=== PATIENT | male | born 1995 | race Caucasian/White ===

== ENCOUNTER 2017-01-30 17:45 | Emergency (ER) | payer OTHER ==
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
--- NOTE | 2017-01-30 17:59 | PDOC ---
Attending Attestation - Resident Resident Name: Young Montoya - ED Attending Attestation I have performed the following: I have examined & evaluated the patient, The case was reviewed & discussed with the resident, I agree w/resident's findings & plan, Exceptions are as noted - HPI HPI: 01/30/17 17:58 The patient is a 21-year-old male who presents to the emergency department after he sustained a laceration of the right ear. He denies head trauma. There is minimal pain. He denies any changes in his hearing. - Physicial Exam PE: 01/30/17 18:16 The patient is well-appearing and in no acute distress There is an area laceration at the apex of the right ear, it is approximately 1 cm in depth - Medical Decision Making 01/30/17 18:17 I discussed the advantages of repair by plastic surgery versus the advantages of repair in the emergency department, high lighting the advanced skilled level of the plastic surgeon versus the immediate availability of repair in the emergency department. I explained that I have the ability to repair this laceration, though the expertise of a plastic surgeon exceeds my own. Both the patient and the mother requests immediate repair by myself. The patient is quite anxious, and we will administer 5 mg of Valium. I have applied topical lidocaine to the laceration 01/30/17 18:32 The patient is refusing laceration repair After extensive discussion with both he and his mother, we have elected to provide intramuscular analgesia using morphine, as it will also provide some anxiolysis 01/30/17 18:39 Morphine given Will await analgesic effect 01/30/17 19:27 10 sutures placed after the wound was cleaned and prepped as well as irrigated and explored No foreign body was present The wound edges approximated extremely well The patient's mother was very pleased with the cosmesis I had her inspect all aspects of the wound very closely I counseled them regarding wound care and the need for close follow-up Clinical impression: Complicated right ear laceration I discussed the physical exam findings, ancillary test results and final diagnoses with the patient. I answered all of the patient's questions. The patient was satisfied with the care received and felt comfortable with the discharge plan and treatment plan. The patient will call their primary care physician within 24 hours to arrange follow-up and will return to the Emergency Department with any new, persistent or worsening symptoms. A portion of this note was documented by scribe services under my direction. I have reviewed the details of the note, within reason, and agree with the documentation with the following case summary and management plan written by me. Discharge Disposition - Diagnosis Ear lobe laceration - Discharge Dispostion Disposition: HOME Condition at time of disposition: Good - Prescriptions Prescriptions: Cephalexin Monohydrate [Keflex] 500 mg PO BID #10 capsule - Referrals Referrals: Alisa Wilder [Primary Care Provider] - - Patient Instructions Printed Discharge Instructions: DI for Laceration Repair Additional Instructions: Follow up with your primary care physician after this emergency room visit. Sutures should be removed in 5 days. Take the antibiotic that we prescribed twice daily to prevent infection. Return to the emergency department immediately with ANY new, persistent or worsening symptoms. Specifically, if your ear becomes red, hot, swollen or has discharge, it may be infected, and he must return to the emergency department immediately. You MUST call and follow up with your doctor tomorrow. Please make sure your doctor reviews the results of your emergency department evaluation. - Post Discharge Activity
[2017-01-30 18:08] VITALS: BP 154/95; PULSE 88; TEMP 97.8; BMI 22.4
[2017-01-30] MEDS ORDERED: diazePAM 5 MG TABLET ONE (18:16)
[2017-01-30] MEDS ORDERED: diazePAM 5 MG TABLET PO ONE (18:18)
[2017-01-30] MEDS ORDERED: morphine CARPU-JECT 4 MG/1 ML DISP.SYRIN IM ONE (18:32)
[2017-01-30] MEDS ORDERED: morphine CARPU-JECT 2 MG/1 ML DISP.SYRIN ONE (18:36)
== END 2017-01-30 19:52 | disposition home or self-care (01) ==
LOC: FER 17:45
PROC: 3E023NZ Introduction of Analgesics, Hypnotics, Sedatives into Muscle, Percutaneous Approach (ICD-10-PCS; principal; 2017-01-30)
DX: S01.311A Laceration without foreign body of right ear, initial encounter (principal); W22.8XXA Striking against or struck by other objects, initial encounter; Y93.89 Activity, other specified; Y92.9 Unspecified place or not applicable
CPT/HCPCS: 99282-25

== ENCOUNTER 2017-02-05 15:32 | Emergency (ER) | payer OTHER ==
[2017-02-05 15:40] VITALS: BMI 21.6
[2017-02-05 15:53] VITALS: BP 150/92; PULSE 73; TEMP 97.9
--- NOTE | 2017-02-05 16:03 | PDOC ---
History of Present Illness - General History Source: Patient Exam Limitations: No Limitations - History of Present Illness Initial Comments: 02/05/17 16:14 Patient is a 21 year old male with no significant past medical history who presents to the ED for suture removal from the top of the R ear placed on 01/30. Patient finished 5 days of abx. Patient states that he was instructed to apply Aquafor to the area everday, but he denies doing so. He reports tenderness to touch. He denies any recent head trauma or fall. <Sera Duncan - Last Filed: 02/05/17 16:59> <Marv Cheney - Last Filed: 02/05/17 17:05> - General Chief Complaint: Suture/Staple Removal(Here) Stated Complaint: suture removal Time Seen by Provider: 02/05/17 16:02 Past History <Sera Duncan - Last Filed: 02/05/17 16:59> - Past Medical History Psychiatric Problems: No (NEEDLE PHOBIA) - Immunization History Immunization Up to Date: Yes - Psycho/Social/Smoking Cessation Hx Anxiety: No Suicidal Ideation: No Smoking History: Never smoked Hx Alcohol Use: No Drug/Substance Use Hx: No Substance Use Type: None <Marv Cheney - Last Filed: 02/05/17 17:05> - Past Medical History Allergies/Adverse Reactions: Allergies Allergy/AdvReac Type Severity Reaction Status Date / Time Neuromuscular Blockers, AdvReac Unknown Verified 02/05/17 15:33 Benzylisoqu Neuromuscular Blockers, AdvReac Verified 02/05/17 15:33 Steroidal Home Medications: Ambulatory Orders NK [No Known Home Medication] 02/05/17 Review of Systems - Review of Systems Able to Perform ROS?: Yes Comments:: 02/05/17 16:15 GENERAL/CONSTITUTIONAL: No fever or chills. No weakness. HEAD, EYES, EARS, NOSE AND THROAT: No change in vision. No ear pain or discharge. No sore throat. CARDIOVASCULAR: No chest pain or shortness of breath. RESPIRATORY: No cough, wheezing, or hemoptysis. GASTROINTESTINAL: No nausea, vomiting, diarrhea or constipation. GENITOURINARY: No dysuria, frequency, or change in urination. MUSCULOSKELETAL: No joint or muscle swelling or pain. No neck or back pain. SKIN: (+)suture removal from the apex of the right ear. No rash NEUROLOGIC: No headache, vertigo, loss of consciousness, or change in strength/ sensation. ENDOCRINE: No increased thirst. No abnormal weight change. HEMATOLOGIC/LYMPHATIC: No anemia, easy bleeding, or history of blood clots. ALLERGIC/IMMUNOLOGIC: No hives or skin allergy. <Sera Duncan - Last Filed: 02/05/17 16:59> *Physical Exam - Vital Signs Last Vital Signs Temp Pulse Resp BP Pulse Ox 97.9 F 73 18 150/92 100 02/05/17 15:32 02/05/17 15:32 02/05/17 15:32 02/05/17 15:32 02/05/17 15:32 - Physical Exam Comments: 02/05/17 16:16 GENERAL: Awake, alert, and fully oriented, in no acute distress HEAD: No signs of trauma EYES: PERRLA, EOMI, sclera anicteric, conjunctiva clear ENT: Auricles normal inspection, hearing grossly normal, nares patent, oropharynx clear without exudates. Moist mucosa NECK: Normal ROM, supple, no lymphadenopathy, JVD, or masses LUNGS: Breath sounds equal, clear to auscultation bilaterally. No wheezes, and no crackles HEART: Regular rate and rhythm, normal S1 and S2, no murmurs, rubs or gallops ABDOMEN: Soft, nontender, normoactive bowel sounds. No guarding, no rebound. No masses EXTREMITIES: Normal range of motion, no edema. No clubbing or cyanosis. No cords, erythema, or tenderness NEUROLOGICAL: Cranial nerves II through XII grossly intact. Normal speech, normal gait SKIN:(+)7 sutures removed from apex anterior right ear. 3 sutures remaining at the back of the right top ear. Warm, Dry, normal turgor, no rashes or lesions noted. <Sera Duncan - Last Filed: 02/05/17 16:59> - Vital Signs Last Vital Signs Temp Pulse Resp BP Pulse Ox 97.9 F 73 18 150/92 100 02/05/17 15:32 02/05/17 15:32 02/05/17 15:32 02/05/17 15:32 02/05/17 15:32 <Marv Cheney - Last Filed: 02/05/17 17:05> Medical Decision Making - Medical Decision Making 05/26/17 16:17 21 yo M with no pmhx who presents to the ED suture removal placed here on 01/30. Patient seen and examined. Bacitracin was applied for approx. 20 mins to loosen up the sutures before the removal. 02/05/17 16:59 Sutures were removed only from the front top of the ear the top back were left until Wednesday. <Sera Duncan - Last Filed: 02/05/17 16:59> *DC/Admit/Observation/Transfer - Attestations Scribe Attestion: 02/05/17 16:16 Documentation prepared by VALENTE Shields, acting as medical records specialist for Marv Cheney DO. <Sera Duncan - Last Filed: 02/05/17 16:59> - Discharge Dispostion Admit: No - Attestations Physician Attestion: 02/05/17 16:03 I, Dr. Marv Cheney, attest that this document has been prepared under my direction and personally reviewed by me in its entirety. I further attest, that it accurately reflects all work, treatment, procedures and medical decision -making performed by me. <Marv Cheney - Last Filed: 02/05/17 17:05> Diagnosis at time of Disposition: Encounter for removal of sutures - Discharge Dispostion Disposition: HOME Condition at time of disposition: Good - Patient Instructions Printed Discharge Instructions: DI for Suture Removal Additional Instructions: Keep it covered with neosporin and come back wednesday to have the last three removed. Best- Dr. Marv Cheney
== END 2017-02-05 17:17 | disposition home or self-care (01) ==
LOC: FER 15:32
DX: Z48.02 Encounter for removal of sutures (principal)
CPT/HCPCS: 99281-25

== ENCOUNTER 2017-02-09 19:40 | Emergency (ER) | payer OTHER ==
[2017-02-09 19:48] VITALS: BP 147/100; PULSE 65; TEMP 97.7; BMI 22.4
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
== END 2017-02-09 20:07 | disposition home or self-care (01) ==
LOC: FER 19:40
DX: Z48.02 Encounter for removal of sutures (principal)
CPT/HCPCS: 99281-25

== ENCOUNTER 2017-09-09 23:34 | Emergency (ER) | payer OTHER ==
[2017-09-09 23:39] VITALS: BP 161/103; PULSE 72; TEMP 98.9; BMI 22.1
--- NOTE | 2017-09-09 23:39 | PDOC ---
History of Present Illness - General Chief Complaint: Injury Stated Complaint: FALL Time Seen by Provider: 09/09/17 23:39 History Source: Patient Exam Limitations: No Limitations - History of Present Illness Initial Comments: 09/09/17 23:54 This is a 22-year-old male who comes in with his father for evaluation status post a fall. Patient was going down a flight of stairs when he got to the landing longterm down he tripped losing his balance and fell off the landing landing on the floor about 5 feet below. Patient landed on the right side of his body. Patient said he did hit his head but did not pass out. Patient denies a headache, nausea, vertigo, dizziness or any neurological complaints. Patient denies any neck pain. Patient is complaining of some pain on the side of his head and upper posterior right ribs, and right thigh. Patient did not take anything for the pain. PAST MEDICAL HISTORY: no significant history PAST SURGICAL HISTORY: no significant history FAMILY HISTORY: no pertinant history SOCIAL HISTORY: Pt lives with family and is employed. MEDICATIONS: reviewed ALLERGIES: As per nursing notes Review of Systems General: No fevers or chills, no weakness, no weight loss HEENT: No change in vision. No sore throat,. No ear pain, pain right side of head CardioVascular: No chest pain or shortness of breath, right posterior rib pain Respiratory:No cough, or wheezing. Gastrointestinal: no nausea, vomitting, diarrhea or constipation, No rectal bleeding Genitourinary: No dysuria, hematuria, or frequency Musculoskeletal: No joint +, right thigh pain Neurologic: No headache, vertigo, dizziness or loss of consciousness Psychiatric: nor depression Skin: No rashes or easy bruising Endocrine: no increased thirst or abnormal weight change Allergic: no skin or latex allergy All other systems reviewed and normal Exam: General: Well-nourished well-developed individual, no acute distress HEENT: Throat: Normal, tonsils normal, no erythema or exudate, head there is a contusion over the right jain area. Neck: Supple, no meningeal signs, no lymphadenopathy, cervical spine is nontender to palpation with full range of motion at the neck without discomfort Eyes::Pupils equal reactive and round, extraocular motion intact Chest: Nontender to palpation Cardiac: S1-S2 normal, regular rate and rhythm, no murmurs rubs or gallops Respiratory: Lungs clear to auscultation bilateral Back: The thoracic lumbar and sacral spine or nontender to palpation diffusely, there is a contusion over the right posterior upper ribs with some tenderness on palpation of the second rib Abdomen: Soft, nondistended, normal bowel sounds, nontender to palpation diffusely Extremities: Warm, dry, no cyanosis, clubbing, or edema Skin: No rashes Neuro: Alert and oriented x3, CN II - XII intact, nonfocal exam with normal strength, normal sensation, normal reflexes, normal gait, Psych: Normal mood and affect 09/10/17 00:12 X-ray chest no acute pathology X-ray ribs no cute fracture dislocation Assessment and plan: This is a 22-year-old male who fell off of a landing of a staircase. Patient came in for evaluation. Patient had x-rays that were negative for any acute pathology. Patient denied any concussion type symptoms and did have multiple contusions but otherwise no broken bones. Patient was given ibuprofen here in the emergency room and told to continue 3 tablets 3 times a day and follow-up with his primary care next week if not improved Past History - Past Medical History Allergies/Adverse Reactions: Allergies Allergy/AdvReac Type Severity Reaction Status Date / Time Neuromuscular Blockers, AdvReac Unknown Verified 02/09/17 19:41 Benzylisoqu Neuromuscular Blockers, AdvReac Verified 02/09/17 19:41 Steroidal Home Medications: Ambulatory Orders Doxycycline Monohydrate [Monodox] 100 mg PO Q12H 09/09/17 Psychiatric Problems: No (NEEDLE PHOBIA) - Immunization History Immunization Up to Date: Yes - Suicide/Smoking/Psychosocial Hx Smoking History: Current some day smoker Have you smoked in the past 12 months: No Information on smoking cessation initiated: Yes Hx Alcohol Use: No Drug/Substance Use Hx: No Substance Use Type: None *Physical Exam - Vital Signs Last Vital Signs Temp Pulse Resp BP Pulse Ox 98.9 F 72 16 161/103 100 09/09/17 23:36 09/09/17 23:36 09/09/17 23:36 09/09/17 23:36 09/09/17 23:36 *DC/Admit/Observation/Transfer Diagnosis at time of Disposition: Contusion of scalp Qualifiers: Encounter type: initial encounter Qualified Code(s): S00.03XA - Contusion of scalp, initial encounter Chest wall contusion Qualifiers: Encounter type: initial encounter Laterality: right Qualified Code(s): S20.211A - Contusion of right front wall of thorax, initial encounter - Discharge Dispostion Disposition: HOME Condition at time of disposition: Stable - Referrals Referrals: Alisa Wilder [Primary Care Provider] - - Patient Instructions Additional Instructions: Take ibuprofen 3 tablets 3 times a day for the next 3-4 days. Follow-up with your primary care DrHailey next week if you're still having significant pain or discomfort. Return to the emergency department immediately with ANY new, persistent or worsening symptoms. Continue any medications as previously prescribed by your physician. You should follow up with your primary doctor as soon as possible regarding today's emergency department visit. . Please make sure your doctor reviews the results of your emergency evaluation. Thank you for coming to the Emergency Department today for your care. It was a pleasure to see you today. Please note that your evaluation is INCOMPLETE until you follow-up with your doctor. - Post Discharge Activity
[2017-09-09] MEDS ORDERED: IBUPROFEN 600 MG TABLET (FP) PO ONE ×2 (23:53→23:55)
== END 2017-09-10 00:25 | disposition home or self-care (01) ==
LOC: FER 23:34
DX: S00.03XA Contusion of scalp, initial encounter (principal); S20.211A Contusion of right front wall of thorax, initial encounter; F99 Mental disorder, not otherwise specified; F17.210 Nicotine dependence, cigarettes, uncomplicated
CPT/HCPCS: 71020-TC; 71101-TC-RT; 99281-25

== ENCOUNTER 2018-01-27 17:46 | Emergency (ER) | payer OTHER ==
[2018-01-27 17:55] VITALS: BP 143/89; PULSE 64; TEMP 97.8; BMI 23.3
--- NOTE | 2018-01-27 18:11 | PDOC ---
History of Present Illness - General History Source: Patient, Parent(s) Exam Limitations: No Limitations - History of Present Illness Initial Comments: 01/27/18 18:21 The patient is a 22 year old male accompanied with his mother, with a significant past medical history of hyperekplexia, who presents to the emergency department complaining of left heel pain for 2 days. The patient reports landing on his heel after jumping a height of 4 feet from a rock into a pool that was much more shallow than expected, 2 days ago. He reports moderate left heel pain which is exacerbated with walking. He reports difficulty ambulating. Denies loss of consciousness. Allergies: Benzylisoqu, Neuromuscular blockers. Past surgical history: Bilateral heel cord release. Umbilical hernia, myringotomies, T&A. Social history: Alcohol consumption reported. No reported cigarette or drug use. Occurred: reports: other (2 days ago.) Severity: reports: moderate Pain Location: reports: lower extremity Method of Injury: Yes: other (jumped into shallow pool. ) Modifying Factors: improves with: other (worse with walking. ) Loss of Consciousness: no loss of consciousness Associated Symptoms (Fall): denies symptoms, trouble walking <Maren Rivas - Last Filed: 01/27/18 18:27> <Gal De Santiago - Last Filed: 01/27/18 19:04> - General Chief Complaint: Injury Stated Complaint: LEFT FOOT PAIN S/P JUMPED INTO SHALLOW POOL Time Seen by Provider: 01/27/18 18:09 Past History <Maren Rivas - Last Filed: 01/27/18 18:27> - Past Medical History COPD: No Psychiatric Problems: No (NEEDLE PHOBIA) - Immunization History Immunization Up to Date: Yes - Suicide/Smoking/Psychosocial Hx Smoking History: Never smoked Have you smoked in the past 12 months: No Information on smoking cessation initiated: No 'Breaking Loose' booklet given: 09/09/17 Hx Alcohol Use: Yes (occasional) Drug/Substance Use Hx: No Substance Use Type: None <Gal De Santiago - Last Filed: 01/27/18 19:04> - Past Medical History Allergies/Adverse Reactions: Allergies Allergy/AdvReac Type Severity Reaction Status Date / Time Neuromuscular Blockers, AdvReac Unknown Verified 01/27/18 17:48 Benzylisoqu Neuromuscular Blockers, AdvReac Verified 01/27/18 17:48 Steroidal Home Medications: Ambulatory Orders NK [No Known Home Medication] 01/27/18 Review of Systems - Review of Systems Able to Perform ROS?: Yes Is the patient limited Dutch proficient: No Constitutional: No: Symptoms Reported, See HPI, Chills, Diaphoresis, Fever, Loss of Appetite, Malaise, Night Sweats, Weakness, Weight Stable, Unintentional Wgt. Loss, Unexplained wgt Loss, Other HEENTM: No: Symptoms Reported, See HPI, Eye Pain, Blurred Vision, Tearing, Recent change in vision, Double Vision, Cataracts, Ear Pain, Ocular Prothesis, Ear Discharge, Nose Pain, Nose Congestion, Tinnitus, Nose Bleeding, Hearing Loss , Throat Pain, Throat Swelling, Mouth Pain, Dental Problems, Difficulty Swallowing, Mouth Swelling, Other Cardiac (ROS): No: Symptoms Reported, See HPI, Chest Pain, Edema, Irregular Heart Rate, Lightheadedness, Palpitations, Syncope, Chest Tightness, Other ABD/GI: No: Symptoms Reported, See HPI, Abdominal Distended, Abd. Pain w/ defecation, Blood Streaked Bowels, Constipated, Diarrhea, Difficulty Swallowing , Nausea, Poor Appetite, Poor Fluid Intake, Rectal Bleeding, Vomiting, Indigestion, Abdominal cramping, Tarry Stools, Other : No: Symptoms Reported, See HPI, Burning, Dysuria, Discharge, Frequency, Flank Pain, Hematuria, Incontinence, Pain, Urgency, Testicular Mass, Testicular Swelling, Lesions, Testicular Pain, Other Musculoskeletal: Yes: Other (+left heel pain. ) Integumentary: No: Symptoms Reported, See HPI, Bruising, Change in Color, Change in Hair/Nails, Dryness, Erythema, Flushing, Lesions, Lumps, Pallor, Pruritus, Rash, Sweating, Other Neurological: No: Symptoms reported, See HPI, Headache, Numbness, Paresthesia, Pre-Existing Deficit, Seizure, Tingling, Tremors, Weakness, Unsteady Gait, Ataxia, Dizziness, Other Endocrine: No: Symptoms Reported, See HPI, Excessive Sweating, Flushing, Intolerance to Cold, Intolerance to Heat, Increased Hunger, Increased Thirst, Increased Urine, Unexplained Weight Gain, Unexplained Weight Loss, Change in Weight, Other All Other Systems: Reviewed and Negative <Maren Rivas - Last Filed: 01/27/18 18:27> *Physical Exam - Vital Signs Last Vital Signs Temp Pulse Resp BP Pulse Ox 97.8 F 64 18 143/89 100 01/27/18 17:48 01/27/18 17:48 01/27/18 17:48 01/27/18 17:48 01/27/18 17:48 - Physical Exam Comments: GENERAL: Well developed, well nourished. Awake and alert. No acute distress. HEENT: Normocephalic, atraumatic. PERRLA, EOMI. No conjunctival pallor. Sclera are non- icteric. Moist mucous membranes. Oropharynx is clear. NECK: Supple. Full ROM. No JVD. Carotid pulses 2+ and symmetric, without bruits. No thyromegaly. No lymphadenopathy. CARDIOVASCULAR: Regular rate and rhythm. No murmurs, rubs, or gallops. Distal pulses are 2+ and symmetric. PULMONARY: No evidence of respiratory distress. Lungs clear to auscultation bilaterally. No wheezing, rales or rhonchi. ABDOMINAL: Soft. Non-tender. Non-distended. No rebound or guarding. No organomegaly. Normoactive bowel sounds. MUSCULOSKELETAL Normal range of motion at all joints. No bony deformities or tenderness. No CVA tenderness. EXTREMITIES: (+)tenderness to pressure on left calcaneus. achilles normal, scar on skin post surgery. Ankle normal. No cyanosis. No clubbing. No edema. SKIN: Warm and dry. Normal capillary refill. No rashes. No jaundice. NEUROLOGICAL: Alert, awake, appropriate. Cranial nerves 2-12 intact. No deficits to light touch and temperature in face, upper extremities and lower extremities. No motor deficits in the in face, upper extremities and lower extremities. Normoreflexic in the upper and lower extremities. Normal speech. Toes are down- going bilaterally. PSYCHIATRIC: Cooperative. Good eye contact. Appropriate mood and affect. General Appearance: Yes: Nourished, Appropriately Dressed HEENT: positive: EOMI, ALEXX, Normal ENT Inspection, Normal Voice, TMs Normal, Pharynx Normal Neck: positive: Supple Respiratory/Chest: positive: Lungs Clear, Normal Breath Sounds Cardiovascular: positive: Regular Rhythm, Regular Rate Gastrointestinal/Abdominal: positive: Normal Bowel Sounds, Soft Rectal Exam: positive: deferred Musculoskeletal: positive: Normal Inspection Extremity: positive: Normal Capillary Refill, Normal Inspection, Normal Range of Motion, Tender (+tenderness to pressure on left calcaneus. achilles normal, scar on skin post surgery. Ankle normal. 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 <Maren Rivas - Last Filed: 01/27/18 18:27> - Discharge Dispostion Decision to Admit order: No <Gal De Santiago - Last Filed: 01/27/18 19:04> Diagnosis at time of Disposition: Injury, foot Qualifiers: Encounter type: initial encounter Laterality: left Qualified Code(s): S99.922A - Unspecified injury of left foot, initial encounter - Discharge Dispostion Disposition: HOME Condition at time of disposition: Stable - Referrals Referrals: Vitor Feng MD [Staff Physician] - - Patient Instructions Printed Discharge Instructions: How to Prevent Falls Additional Instructions: Elevation avoid pressure on the heel
== END 2018-01-27 19:35 | disposition home or self-care (01) ==
LOC: FER 17:46
DX: S99.922A Unspecified injury of left foot, initial encounter (principal); X58.XXXA Exposure to other specified factors, initial encounter; Y93.89 Activity, other specified; Y92.9 Unspecified place or not applicable
CPT/HCPCS: 73610-TC-LT-FY; 73650-TC-LT-FY; 99282-25

== ENCOUNTER 2018-03-04 13:19 | Emergency (ER) | payer OTHER ==
[2018-03-04 13:27] VITALS: BP 129/86; PULSE 65; TEMP 98.2; BMI 23.3
--- NOTE | 2018-03-04 14:23 | PDOC ---
History of Present Illness - General Chief Complaint: Rash Stated Complaint: RASH Time Seen by Provider: 03/04/18 13:22 History Source: Patient Exam Limitations: No Limitations - History of Present Illness Initial Comments: 03/04/18 14:17 22-year-old male no past history here today complaining of rash near his groin area. Patient states started 2 days ago is extremely itchy red and irritated. Denies any new detergents lotions or fabric softeners no new medications no hair loss no history of similar rash the past patient does have eczema did not take anything for earlier today Past History - Past Medical History Allergies/Adverse Reactions: Allergies Allergy/AdvReac Type Severity Reaction Status Date / Time Neuromuscular Blockers, AdvReac Unknown Verified 03/04/18 13:20 Benzylisoqu Neuromuscular Blockers, AdvReac Verified 03/04/18 13:20 Steroidal Home Medications: Ambulatory Orders Tolnaftate 1% Cream [Tinactin 1% Cream -] 1 applic TP BID 30 Days #100 cream..g. 03/04/18 COPD: No Psychiatric Problems: No (NEEDLE PHOBIA) - Immunization History Immunization Up to Date: Yes - Suicide/Smoking/Psychosocial Hx Smoking History: Never smoked Have you smoked in the past 12 months: No 'Breaking Loose' booklet given: 09/09/17 Hx Alcohol Use: No Drug/Substance Use Hx: No Substance Use Type: Alcohol Review of Systems - Review of Systems Constitutional: No: See HPI, Chills, Diaphoresis, Unexplained wgt Loss Respiratory: No: Cough, Orthopnea, Shortness of Breath Cardiac (ROS): No: Chest Pain ABD/GI: No: Abdominal Distended : Yes: Other (rash). No: Flank Pain, Hematuria, Testicular Swelling, Lesions Integumentary: Yes: Pruritus, Rash. No: Bruising, Change in Color Neurological: No: Headache, Numbness, Paresthesia All Other Systems: Reviewed and Negative *Physical Exam - Vital Signs Last Vital Signs Temp Pulse Resp BP Pulse Ox 98.2 F 65 18 129/86 99 03/04/18 13:20 03/04/18 13:20 03/04/18 13:20 03/04/18 13:20 03/04/18 13:20 - Physical Exam General Appearance: Yes: Appropriately Dressed HEENT: positive: Normal ENT Inspection Neck: positive: Trachea midline Respiratory/Chest: positive: Lungs Clear, Normal Breath Sounds Cardiovascular: positive: Regular Rhythm, Regular Rate, S1, S2 Male Genitalia: positive: normal genitalia Extremity: positive: Normal Capillary Refill, Normal Inspection, Normal Range of Motion Integumentary: positive: Rash (skin erythema around groin area, scrotum, inguinal creases, and inner thigh. no pustules. no lesions. maculopapular rash. ) Medical Decision Making - Medical Decision Making 03/04/18 14:19 differential : tinea cruris, allergic reaction. recommend nystatin powder or cream and benadryl for itching. told to follow up [facility] leather cleaner. *DC/Admit/Observation/Transfer Diagnosis at time of Disposition: Tinea cruris - Discharge Dispostion Disposition: HOME Condition at time of disposition: Improved - Prescriptions Prescriptions: Tolnaftate 1% Cream [Tinactin 1% Cream -] 1 applic TP BID 30 Days #100 cream..g. - Referrals Referrals: Arielle Herrera [Staff Physician] - - Patient Instructions Printed Discharge Instructions: Tinea Cruris: AKA [place] Itch Additional Instructions: you should apply tolnifate cream topically to groin area twice daily. where lose fitting clothing and underwear and shower often. you should follow up with dermatology. call to schedule. - Post Discharge Activity
== END 2018-03-04 14:28 | disposition home or self-care (01) ==
LOC: FER 13:19
DX: B35.6 Tinea cruris (principal)
CPT/HCPCS: 99281-25

== ENCOUNTER 2021-01-09 00:06 | Emergency (ER) | payer OTHER ==
[2021-01-09 00:10] VITALS: BMI 23.3
[2021-01-09 00:21] VITALS: BP 177/106; PULSE 92; TEMP 98.8
== END 2021-01-09 00:27 | disposition home or self-care (01) ==
LOC: FER 00:06
DX: S01.01XA Laceration without foreign body of scalp, initial encounter (principal)
CPT/HCPCS: 99282-25